=== PATIENT | male | born 1995 | race Caucasian/White ===

== ENCOUNTER 2020-08-30 06:02 | Day surgery (SDC) | payer BC ==
[2020-08-30] VITALS (8 sets, daily range): BP systolic 91–132; BP diastolic 54–78; PULSE 60–84; TEMP 97.3–100.1
[~2020-08-30] VITALS: Ht 182.9 cm; Wt 78.7 kg
[~2020-08-30 06:02] MED LIST: ASPIRIN 32325 MG/TA1 PO; ATIVAN 1MG T1 MG/TAB PO; CIPRO 500MG TA500 MG PO; FLAGYL500 MG PO; LORTAB 5/500 501 TAB PO; NAPROSYN500 MG PO; NO HOME MEDICATIONS; NORCO 325 MG-51 TAB PO; PERCOCET 325 MG1 TA2 PO; PHENERGAN 25 TA25 MG PO; ULTRAM 50MG TAB50 MG PO
[2020-08-30] MEDS ORDERED: NORCO 325 MG-51 TAB PO (07:16)
[2020-08-30] MEDS ORDERED: PYRIDIUM 100MG100 MG PO (07:16)
--- NOTE | 2020-08-30 08:10 | NUR ---
Patient arrives to [facility] [place] [facility] post-op via cart, accompanied by DIRECTOR OF CONSUMER AFFAIRS Anali and LEASING ASSOCIATE Chai Arellano. Monitoring is applied -VSS and WNL on room air. Patient is asleep. He awakens to light touch and name, nodding responses to staff. Patient shared that he has been awake since 0700 yesterday pre-op. Lights are dimmed for comfort. Will continue to monitor.
--- NOTE | 2020-08-30 08:30 | NUR ---
Patient continues to sleep. He remains easily awakened to light touch/name. Nods to questions. Denies pain or need.
--- NOTE | 2020-08-30 09:00 | NUR ---
Patient remains easily awakened to voice/light touch. Denies pain or need.
--- NOTE | 2020-08-30 09:30 | NUR ---
Patient is sleeping. He awakens to voice. He denies pain or nausea. Converses with staff. VSS on room air.
--- NOTE | 2020-08-30 10:00 | NUR ---
Patient is awake, sitting up in bed. He denies pain or nausea. He is offered and receives juice and pudding to eat.
--- NOTE | 2020-08-30 10:30 | NUR ---
Patient ambulates to the restroom and voids a large amount of mikayla, pink-tinged urine. Urine is strained and no kidney stones are noted. He returns to room. Gait steady.
--- NOTE | 2020-08-30 10:47 | NUR ---
Patient has met discharge criteria. Discharge instructions are discussed. He denies any questions and verbalizes understanding. He is given supplies to straine his urine and instructed on how to do so. PIV is removed with catheter intact and hemostasis achieved. He is changing to his clothing independently.
--- NOTE | 2020-08-30 11:15 | NUR ---
Patient is escorted to the exit via wheelchair by staff. He is discharged to home with ride in private vehicle at 1115.
== END 2020-08-30 11:15 | disposition home or self-care (01) ==
LOC: SDCO 06:02
DX: N20.0 Calculus of kidney (principal); F17.210 Nicotine dependence, cigarettes, uncomplicated; Z88.1 Allergy status to other antibiotic agents; Z20.828 Contact with and (suspected) exposure to other viral communicable diseases
CPT/HCPCS: J2704; J3010; J7120